=== PATIENT | female | born 1955 | race Caucasian/White ===

== ENCOUNTER → 2016-10-27 | Outpatient (CLI) | payer OTHER | LOC: FIMAGING 08:57 | DX: Z12.31 Encounter for screening mammogram for malignant neoplasm of breast (principal) | CPT/HCPCS: G0202 ==

== ENCOUNTER → 2016-11-06 | Outpatient (CLI) | payer OTHER | LOC: FIMAGING 13:56 | PROVIDERS: ATTEND Family Medicine | DX: N60.01 Solitary cyst of right breast (principal) | CPT/HCPCS: G0206 ==